=== PATIENT | male | born 1945 | race Caucasian/White ===

== ENCOUNTER 2025-08-15 06:14 | Day surgery (SDC) | payer OTHER ==
[~2025-08-15 06:14] MED LIST: ENTRESTO 24 MG1 EACH PO; PACERONE100 M1 PO
[2025-08-15] MEDS ORDERED: Heparin Sodium 1000 Units/ML 10ML MDV ONE (07:16)
[2025-08-15] MEDS ORDERED: Nitroglycerin 2 MG/20 ML BTL ONE (07:16)
[2025-08-15] MEDS ORDERED: Verapamil HCL 2.5 MG/ML 2ML Injection ONE (07:16)
[2025-08-15] MEDS ORDERED: NS 0 ML IV ONE ×2 (07:16)
[2025-08-16] MEDS ORDERED: ELIQUIS5 M2 PO (06:30)
[2025-08-16] MEDS ORDERED: CARV6.25 PO (06:31)
[2025-08-16] MEDS ORDERED: Crestor40 MG PO (06:31)
[2025-08-16] MEDS ORDERED: SIME80CH PO (06:33)
== END 2025-08-15 23:00 | disposition home or self-care (01) ==
LOC: MHTC 06:14
DX: I48.91 Unspecified atrial fibrillation (principal); I13.0 Hypertensive heart and chronic kidney disease with heart failure and stage 1 through stage 4 chronic kidney disease, or unspecified chronic kidney disease; I50.20 Unspecified systolic (congestive) heart failure; N18.2 Chronic kidney disease, stage 2 (mild); Z79.01 Long term (current) use of anticoagulants; Z79.899 Other long term (current) drug therapy
CPT/HCPCS: 93005; 93010; J1644; J7030; J7050

== ENCOUNTER 2025-08-16 05:29 | Day surgery (SDC) | payer OTHER ==
[~2025-08-16] VITALS: Ht 188 cm; Wt 84.0 kg
[2025-08-16] MEDS ORDERED: ELIQUIS5 M2 PO (06:30)
[2025-08-16] MEDS ORDERED: CARV6.25 PO (06:31)
[2025-08-16] MEDS ORDERED: Crestor40 MG PO (06:31)
[2025-08-16] MEDS ORDERED: SIME80CH PO (06:33)
[2025-08-16] MEDS ORDERED: NS 1,000 ML IV ONE (06:46)
[2025-08-16 06:51] VITALS: BP 169/110
[2025-08-16 06:57] VITALS: BP 150/99
[2025-08-16 07:18] VITALS: BP 109/68
--- NOTE | 2025-08-16 07:18 | NUR ---
ASSUMED CARE FROM ANESTHESIA. PT AWAKE AND VERBALIZING WELL. SB 45 BPM POST CARDIOVERSION.
[2025-08-16 07:21] VITALS: BP 101/74
[2025-08-16 07:24] VITALS: BP 108/69
[2025-08-16 07:27] VITALS: BP 109/72
--- NOTE | 2025-08-16 08:00 | NUR ---
PT AND DAUGHTER VERBALIZED UNDERSTANDING OF WRITTEN AND VERBAL D/C INST. SB 45-55 BPM ON D/C. AMB IN RM /S DIFFUCULTY. IV REMOVED. PT TAKEN OUT OF THE HRT CENTER VIA W/C.
[2025-08-16] MEDS ORDERED: Propofol 10mg/ml 20 ml Vial (Procedural) IV ONE (10:22)
== END 2025-08-16 22:00 | disposition home or self-care (01) ==
LOC: ORSCMMR 05:29 → MHTC 05:29 → ORSCMMR 05:31 → MHTC 05:31 → ORSCMMR 07:00 → ORD 07:00 → MHTC 22:00 → ORSCMMR 22:00
DX: I48.91 Unspecified atrial fibrillation (principal); I13.0 Hypertensive heart and chronic kidney disease with heart failure and stage 1 through stage 4 chronic kidney disease, or unspecified chronic kidney disease; N18.2 Chronic kidney disease, stage 2 (mild); I50.20 Unspecified systolic (congestive) heart failure; I25.2 Old myocardial infarction; Z79.01 Long term (current) use of anticoagulants; Z79.899 Other long term (current) drug therapy
CPT/HCPCS: 92960; 93005; 93010; J2704; J7030